=== PATIENT | male | born 1985 | race Two or more races ===

== ENCOUNTER 2022-08-20 14:10 | Emergency (ER) | payer OTHER ==
[2022-08-20] MEDS ORDERED: Ketorolac 30 MG/ML SDV IM ONE (14:29)
[2022-08-20] MEDS ORDERED: Take Home: Acetaminophen/HYDROcodone 325-5 MG, 5 Tab Pack PO ONE (14:29)
== END 2022-08-20 14:45 | disposition home or self-care (01) ==
LOC: VM.ED 14:10
DX: K02.9 Dental caries, unspecified (principal); F17.210 Nicotine dependence, cigarettes, uncomplicated
CPT/HCPCS: 96372; 99283; A9270-GY; J1885